=== PATIENT | female | born 1990 | race Caucasian/White ===

== ENCOUNTER 2019-11-08 19:31 | Emergency (ER) | payer BC ==
[~2019-11-08] VITALS: Ht 160 cm; Wt 108.6 kg
[2019-11-08] MEDS ORDERED: BUPR150T73 PO (19:51)
--- NOTE | 2019-11-08 19:54 | NUR ---
TASK RN: PT RESTING ON GURNEY IN GOWN. APPEARS COMFORTABLE. STATES "I CAME IN [place] BECAUSE MY STOMACH HAS BEEN HURTING REALLY BAD." PT STATES IT STARTED IN THE MIDDLE OF THE NIGHT LAST NIGHT AND THEN IT FELT LIKE GAS PAIN, STATES SHE TOOK GAS X TO TRY AND ALLEVIATE PAIN WITH NO LUCK. PT ABDOMEN IS SOFT TO TOUCH, BOWEL SOUNDS NOTED, DENIES CHANCE OF TO THIS RN, LAST BM TODAY. PT AMBULATED TO AND FROM RESTROOM WITH A SMOOTH AND STEADY GAIT TO OBTAIN A CLEAN CATCH URINE SAMPLE. PT PLACED ON SPO2/BP MONITORING, NAD, VSS, SKIN P/W/D, FCS no SOB NOTED. REPORT TO NANCI BOYER RN.
--- NOTE | 2019-11-08 19:58 | NUR ---
PT REPORT FROM JACK MCGOWAN. PT CARE TO BE ASSUMED.
--- NOTE | 2019-11-08 20:17 | NUR ---
C/O EPIGASTRIC AREA PAIN THAT STARTED LAST NOC. HAS TRIED OTC REMEDIES W/OUT RELIEF. MINOR NAUSEA EARLIER TODAY. LAST ORAL INTAKE: 1130 TODAY. LAST BM: THIS AFTERNOON. LMP: 4 YRS AGO - BC IMPLANT LEFT ARM. LT OVARY REMOVED. DERMOID CYST ON RT OVARY. HX KIDNEY STONES. DENIES PAIN BEING SIMILAR TO KIDNEY STONES.
[2019-11-08 20:25] LABS: BASOPHILS # (AUTO) 0.11 x10^3/uL (0-0.1); BASOPHILS % (AUTO) 1 % (0-1); EOSINOPHILS % (AUTO) 1 % (1-7); LYMPHOCYTES # (AUTO) 2.89 x10^3/uL (1-3.4); LYMPHOCYTES % (AUTO) 19 % (22-44); MD NO; MEAN CORPUSCULAR HGB CONC 32.8 g/dL (32.4-35.8); MEAN CORPUSCULAR VOLUME 82.4 fL (80-100); MEAN PLATELET VOLUME 8.9 fL (7.4-10.4); MONOCYTES % (AUTO) 5 % (2-9); NEUTROPHILS # (AUTO) 11.62 x10^3/uL (1.8-6.8); NEUTROPHILS % (AUTO) 75 % (42-75); PLATELET COUNT 335 x10^3/uL (130-400); RED BLOOD COUNT 4.95 x10^6/uL (3.82-5.3); RED CELL DISTRIBUTION WIDTH 12.6 % (9.6-15.2)
[2019-11-08 20:33] LABS: ALANINE AMINOTRANSFERASE 22 U/L (12-78); ALBUMIN 3.8 g/dL (3.4-5.0); ANION GAP 7 mmol/L (5-15); CALCIUM 9.3 mg/dL (8.5-10.1); CHLORIDE 109 mmol/L (98-107); CREATININE 0.82 mg/dL (0.55-1.02)
[2019-11-08 20:37] LABS: ALKALINE PHOSPHATASE 109 U/L (45-117); BILIRUBIN,TOTAL 0.2 mg/dL (0.2-1.0); TOTAL PROTEIN 7.6 g/dL (6.4-8.2)
[2019-11-08] MEDS ORDERED: ONDANSETRON ODT 4 MG ONE (20:48)
[2019-11-08] MEDS ORDERED: ACETAMINOPHEN 500 MG TABLET ONE (20:49)
[2019-11-08 20:50] LABS: MICROSCOPIC NOT IND
[2019-11-08] MEDS ORDERED: ACETAMINOPHEN 325 MG TABLET PO ONE (21:00)
[2019-11-08] MEDS ORDERED: ONDANSETRON ODT 4 MG PO ONE (21:00)
--- NOTE | 2019-11-08 22:05 | NUR ---
PT REPORT TO JACK LUTZ. PT CARE TRANSFERED.
--- NOTE | 2019-11-08 22:08 | NUR ---
REPORT RECEIVED FROM JACK CHRISTINE.
[2019-11-08] MEDS ORDERED: MAALOX/HYOSCYAMINE/LIDOCAINE 45 ML BTL PO ONE (22:30)
[2019-11-08] MEDS ORDERED: MAALOX/HYOSCYAMINE/LIDOCAINE 45 ML BTL ONE (22:31)
--- NOTE | 2019-11-08 22:41 | NUR ---
PT MEDICATED PER MAR. MONITORING IN PLACE, CALL LIGHT WITHIN REACH, ALL SAFETY MEASURES IN PLACE.
[2019-11-08 23:29] VITALS: BP 98/55
--- NOTE | 2019-11-08 23:29 | NUR ---
Patient given discharge instructions and they have confirmed that they understand the instructions. Patient ambulatory with steady gait. All questions answered appropriately. nad, vss. denies additional needs at this time. no belongings left in room after DC.
== END 2019-11-08 23:31 | disposition home or self-care (01) ==
LOC: ED 22:46
DX: K29.00 Acute gastritis without bleeding (principal); R10.11 Right upper quadrant pain; R10.84 Generalized abdominal pain; R11.2 Nausea with vomiting, unspecified; F17.210 Nicotine dependence, cigarettes, uncomplicated
CPT/HCPCS: 36415; 76700; 80053; 81003; 83690; 84703; 85025; 99284; Q0162

== ENCOUNTER 2020-08-26 01:13 | Emergency (ER) | payer SELFPAY ==
[~2020-08-26] VITALS: Ht 160 cm; Wt 110.0 kg
[~2020-08-26 01:13] MED LIST: BUPR150T73 PO
[2020-08-26 01:16] VITALS: BP 124/62
[2020-08-26 02:11] LABS: BASOPHILS % (AUTO) 1 % (0-1); EOSINOPHILS % (AUTO) 2 % (1-7); LYMPHOCYTES % (AUTO) 25 % (22-44); MEAN CORPUSCULAR HEMOGLOBIN 27.8 pg (27.0-34.8); MEAN CORPUSCULAR HGB CONC 33.4 g/dL (32.4-35.8); MEAN PLATELET VOLUME 8.3 fL (7.4-10.4); MONOCYTES % (AUTO) 7 % (2-9); NEUTROPHILS % (AUTO) 66 % (42-75); PLATELET COUNT 320 x10^3/uL (130-400); RED BLOOD COUNT 4.69 x10^6/uL (3.82-5.3); RED CELL DISTRIBUTION WIDTH 12.5 % (9.6-15.2)
[2020-08-26 02:18] LABS: ANION GAP 5 mmol/L (5-15); CALCIUM 8.5 mg/dL (8.5-10.1); CHLORIDE 112 mmol/L (98-107); CREATININE 0.68 mg/dL (0.55-1.02)
--- NOTE | 2020-08-26 03:23 | NUR ---
CLINICAL DENTAL TECHNICIAN: NIL X 1 WHEN CALLED FOR ROOM.
--- NOTE | 2020-08-26 03:31 | NUR ---
RECEIPT AND REPORT CLERK: NIL X 2 WHEN CALLED FOR ROOM.
== END 2020-08-26 03:43 ==
LOC: ED 01:45
DX: R10.2 Pelvic and perineal pain (principal); M54.5 Low back pain; R11.0 Nausea; Z53.21 Procedure and treatment not carried out due to patient leaving prior to being seen by health care provider
CPT/HCPCS: 36415; 80048; 84703; 85025